=== PATIENT | female | born 1940 | race Caucasian/White ===

== ENCOUNTER 2025-02-02 05:25 | Observation (INO) | payer MEDICARE, BC ==
--- NOTE | 2025-01-26 10:44 | ELECTROCARDIOGRAPH REPORT ---
[facility] Test Date: 2025-01-26 Test Time: 10:38:52 Pat Name: CARMELA MOORE Department: [facility] Patient ID: [id number] Room: Gender: F Slip Cover Sewer: JENA : 1940 Requested By: ENRIQUE ALFRED Order Number: [id number] Reading MD: Dr. JACKELINE Chew Measurements Intervals [place] Rate: 74 P: 65 SD: 168 QRS: 20 QRSD: 92 T: 31 QT: 378 QTc: 420 Interpretive Statements Sinus rhythm Borderline low voltage, extremity leads Electronically Signed On 01-26-2025 17:26:[address] JACKELINE Chew Please click the below link to view image of tracing.
[2025-01-26 11:07] LABS: MEAN PLATELET VOLUME 8.2 FL (7.4-10.4); PRE OP HEMATOCRIT 40.0 % (35.0-45.0); PRE OP HEMOGLOBIN 13.5 g/dL (12.0-16.0); PRE OP PLATELET COUNT 211 X10'3 (140-440); PRE OP WHITE BLOOD COUNT 4.5 10'3 (4.8-10.8); RED CELL DISTRIBUTION WIDTH 13.5 % (11.5-14.5)
[2025-01-26 11:30] LABS: CREATININE 1.08 MG/DL (0.40-0.90); PRE OP ALT 15 U/L (30-65); PRE OP ANION GAP 7 (8-16); PRE OP AST 17 U/L (10-37); PRE OP BILIRUB, TOTAL 0.5 MG/DL (0.0-1.0); PRE OP GLUCOSE 73 MG/DL (70-104); PRE OP POTASSIUM 3.8 MMOL/L (3.4-5.1); PRE OP SODIUM 140 MMOL/L (135-145); TOTAL CARBON DIOXIDE 30.2 MMOL/L (24-32); eGFR 48 ML/MIN
[2025-02-02] VITALS (31 sets, daily range): BP systolic 125–148; BP diastolic 78–91; PULSE 78–99; RESP 11–34; TEMP 97–98.6; O2SAT 88–99
[~2025-02-02] VITALS: Ht 167.6 cm; Wt 68.9 kg
[~2025-02-02 05:25] MED LIST: ACET-2971 PO; AMIT10TA13 PO; ATOR10TA87 PO; CALC600T14 PO; CELE-193 PO; CHOL100046 PO; CYAN250010 PO; FLUC150T46 PO; FOLI0.4T3 PO; MAGN100T PO; OMEG-166 PO; SUMA25TA35 PO
[2025-02-02] MEDS: ceFAZolin 2gm/dext,iso 50mL 50 ML IV ONE (06:12)
[2025-02-02] MEDS: ringers solution, lacted 1,000 ML IV SCH ×2 (06:12→07:15)
[2025-02-02] MEDS ORDERED: BUPIVAcaine/PF 2.5mg/ml (0.25%) 10ml vial ONE (06:40)
[2025-02-02] MEDS ORDERED: LIDOcaine 1% (10mg/ml)w/preservative inj. 20ml MDV ONE (06:41)
[2025-02-02] MEDS ORDERED: LIDOcaine 1% 30ml preserv. free vial ONE (07:01)
[2025-02-02] MEDS ORDERED: fentaNYL /PF 50mcg/ml 5ml ampule ONE (07:08)
[2025-02-02] MEDS ORDERED: midazolam 1 mg/ML 2ml injection ONE (07:08)
[2025-02-02] MEDS ORDERED: dexamethasone sod phosphate 4mg/ml inj. ONE (07:11)
[2025-02-02] MEDS ORDERED: rocuronium 10mg/ml inj IV ONE ×3 (07:11→09:15)
[2025-02-02] MEDS ORDERED: propofol inj 20 ML IV ONE (07:11)
[2025-02-02] MEDS ORDERED: acetaminophen 1,000mg/100ml IV 100 ML IV ONE (07:11)
[2025-02-02] MEDS ORDERED: LIDOcaine 2% (20mg/ml) 5ml vial ONE (07:11)
[2025-02-02] MEDS ORDERED: labetalol 20mg/4ml (5mg/ml) syringe IV PRN (07:15)
[2025-02-02] MEDS ORDERED: morphine 4 MG/ML inj SYRINge IV PRN (07:15)
[2025-02-02] MEDS ORDERED: hydrALAZINE 20mg/ml inj. IV PRN (07:15)
[2025-02-02] MEDS ORDERED: ondansetron/PF 4mg/2ml inj ONE (08:07)
[2025-02-02] MEDS ORDERED: ePHEDrine 50MG/ML INJ. ONE (08:35)
[2025-02-02] MEDS ORDERED: albumin (Human) 5% 250ml 250 ML IV ONE (08:39)
--- NOTE | 2025-02-02 10:18 | OPERATIVE REPORT ---
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 Patient was placed supine and general anesthesia was induced. Preoperative antibiotics were given. Medrano catheter was placed. The abdomen was prepped and draped in the standard sterile fashion. At [facility], Veress needle technique was used through a stab incision to access and insufflate the abdomen. This was accomplished without incident. An optical, 12 mm trocar was used to gain access to the abdomen in the left upper quadrant under laparoscopic visualization. Additional 8.5 mm robotic trochars were placed under laparoscopic visualization in the left lateral upper abdomen, left epigastrium and right upper quadrant. Patient was placed in steep, reverse Trendelenburg position. The da Trang robotic arm was docked to the patient and instruments guided into the abdomen under laparoscopic visualization. The left lobe of the liver was lifted and the hiatus inspected. Fairly large hiatal defect was noted. About 50% of the stomach was herniated through the hiatus. An 18 inch, 0, V-Loc suture was used to sling the left lobe of the liver up to the anterior abdominal wall. With the stomach retracted towards the patient's left upper quadrant, dissection was initiated along the pars flaccida and the lesser sac was entered. The lesser omentum was divided up to the right justin. There was a replaced left hepatic artery. This was protected and preserved throughout the case. Dissection was carried in to the mediastinum. The mediastinal space was entered. Dissection was then carried posteriorly along the right justin, taking care to leave peritoneum overlying the muscles. Once the posterior decussation was encountered, attention was then turned to the short gastric vessels. Stomach was retracted toward the patient's right and the short gastric vessels were placed on tension. The short gastric vessels were divided along the upper portion of the greater curvature, up to the phrenoesophageal ligament which was also then divided. The peritoneal reflection of the left justin was opened and dissection carried up until the apex of the crura was reached. Dissection was carried up into the mediastinum, mobilizing the esophagus from the retrocardiac space and taking care not to injure the bilateral pleura. The entire hernia sac which was really quite large in size, was mobilized out of the mediastinum and reduced into the abdomen. Excess sac was dissected at the level of the gastroesophageal fat pad and set aside. The retroesophageal space was developed. The GE junction was retracted anteriorly and the mediastinal dissection was carried out posterior to the esophagus. Dissection continued until at least 3 cm of intra-abdominal esophagus was obtained without any retraction on the stomach. With the stomach retracted anteriorly, adequate space and visualization was obtained to allow for the crural repair. Strips of bioabsorbable, Phasix mesh were used to reinforce the crural repair. A strip of mesh was placed over each crura and used for reapproximation without tension. Attention was then turned to the gastropexy. Fundus was anchored to the upper left portion of the hiatus with full-thickness crural sutures. The suture was then run along the greater curvature creating a gastropexy to the anterior abdominal wall. Care was taken to stay medial to the phrenic nerve and vascular bundle. About a fourth of the gastric fundus was anchored to the anterior abdominal wall. Attention was then turned to the modified Hill procedure/augmentation stitch. The angle of His was then recreated with a running, 2/0, absorbable, V-Loc suture. This was run between the fundus and the lateral border of the intra-abdominal esophagus. This suture was run up to the level of the left justin. Gastropexy was then completed by running the midportion of the gastric fundus towards the initial gastropexy suture and anchoring the 2 together. [place] and sutures were retrieved. The da Trang robotic arm was undocked from the patient. The 12 mm port was removed and the fascial defect closed pe rcutaneously with 0 Vicryl suture. Remaining ports were removed and the abdomen was allowed to deflate. Skin was closed at all sites with 4-0 Monocryl sutures and dressed with Dermabond. Patient was extubated and transferred to the postanesthesia care unit in stable condition. Counts repoted as correct: Yes ANIL ALFRED MD Feb 02, 2025 10:18
[2025-02-02] MEDS: ondansetron/PF 4mg/2ml inj IV PRN ×2 (10:25→14:45)
[2025-02-02] MEDS: fentaNYL/PF 50MCG/1 ML 2ML syringe IV PRN ×2 (10:49→10:58)
[2025-02-02] MEDS: normal saline 1000ml 1,000 ML IV SCH (11:25)
--- NOTE | 2025-02-02 11:30 | RADIOLOGY REPORT ---
EXAM: DI CHEST,SINGLE VIEW Indication: POSTOP Technique: Single frontal view of the chest was obtained Comparison: None FINDINGS: Lines and Tubes: None Lungs: Diffuse interstitial opacities. Possible trace left pneumothorax. Cardiomediastinal contours: Unremarkable. Extensive subcutaneous emphysema in the neck and chest wal l. Bones: No acute osseous abnormality. IMPRESSION: Diffuse interstitial opacities. Possible trace left pneumothorax. Extensive subcutaneous emphysema i n the neck and chest wall.
[2025-02-02] MEDS: HYDROmorph/NS 0.2 mg/ml PCA 100 ML IV SCH (12:55)
[2025-02-02] MEDS: potassium CL 20mEq in D5-1/2NS 1,000 ML IV SCH (14:46)
[2025-02-02] MEDS ORDERED: oxyCODONE/APAP 5-325mg tablet PO PRN (18:30)
[2025-02-02] MEDS: PCA WASTE DOCUMENTATION 1 MG ML MC SCH (19:21)
[2025-02-02] MEDS: HYDROcodone/acetaminophen 5mg/325mg tablet PO PRN (19:26)
[2025-02-02 20:34] LABS: MEAN PLATELET VOLUME 8.3 FL (7.4-10.4); RED CELL DISTRIBUTION WIDTH 13.4 % (11.5-14.5)
[2025-02-02 21:04] LABS: CREATININE 0.94 MG/DL (0.40-0.90); TOTAL CARBON DIOXIDE 25.5 MMOL/L (24-32); eCRCL 42 ML/MIN; eGFR 57 ML/MIN
[2025-02-03 02:00] VITALS: BP 152/77; PULSE 76; RESP 18; TEMP 97.9; O2SAT 93
[2025-02-03 06:00] VITALS: BP 119/71; PULSE 72; RESP 16; TEMP 98.1; O2SAT 93
[2025-02-03] MEDS: CALCIUM CARBONATE 600 MG PO SCH (08:00)
[2025-02-03 10:00] VITALS: BP 131/82; PULSE 77; RESP 16; TEMP 98.1; O2SAT 97
[2025-02-03] MEDS ORDERED: HYDR-3964 PO (10:20)
[2025-02-03] MEDS ORDERED: ONDA-243 PO (10:20)
[2025-02-03] MEDS ORDERED: ondansetron 4mg rapidly disintigrating tab PO PRN (10:20)
--- NOTE | 2025-02-03 10:22 | DISCHARGE SUMMARY ---
Discharge Summary Providers to CC CC: ANIL ALFRED MD ~ Discharge Summary Admission Diagnosis: Paraesophageal hernia Hospital Course DATE OF ADMISSION: February 02, 2025 DATE OF DISCHARGE: February 03, 2025 Discharge Diagnosis\Comment: Type 3 paraesophageal hernia Operations\Procedures: Robotic assisted, laparoscopic paraesophageal hernia repair with mesh Consultants: Anil Alfred MD FACS Complications: None Condition on DC: Stable New Medications: ONDANSETRON ODT 4mg tablet (Ondansetron Odt) 4 Mg Tab.rapdis 1 TAB PO Q6H PRN PRN for nausea/vomiting for 7 Days, #30 TAB 0 Refills Hydrocodone Bit/Acetaminophen (Hydrocodon-Acetaminophen 5-325) 5 Mg-325 Mg Tablet 1 TAB PO Q4H PRN for moderate or severe pain 4-10 for 5 Days, #30 TAB Continued Medications: Acetaminophen (Tylenol Arthritis) 650 Mg Tablet.er 1 TAB PO Q12H, TAB 0 Refills Amitriptyline HCl (Amitriptyline HCl) 10 Mg Tablet 1 TAB PO HS, TAB 0 Refills Atorvastatin Calcium* (Lipitor*) 10 Mg Tablet 10 MG PO DAILY Calcium Carbonate (Calcium) 600 Mg Tablet 1200 MG PO DAILY Celecoxib* (Celebrex*) 100 Mg Capsule 2 CAP PO HS for arthritis, CAP Cholecalciferol (Vitamin D3) (Vitamin D3) 25 Mcg (1000 Unit) Capsule 5000 UNITS PO DAILY Cyanocobalamin (Vitamin B-12) (Vitamin B12) 2,500 Mcg Tablet 2 TAB PO EVERY OTHER DAY, TAB 0 Refills Fluconazole (Fluconazole) 150 Mg Tablet 1 TAB PO PRN PRN for YEAST, TAB Folic Acid (FOLIC ACID tablet) 0.4 Mg Tablet 800 MCG PO DAILY, TAB 0 Refills Magnesium Glycinate (Mag Glycinate) 100 Mg Tablet 240 MG PO HS, TAB 0 Refills [place]-3/Dha/Epa/Fish Oil (Fish Oil 1,000 Mg Ec Softgel) 300 Mg-1,000 Mg Capsule.dr 1 CAP PO Q12H Sumatriptan Succinate* (Imitrex Tab*) 25 Mg Tablet 100 MG PO DAILY PRN for MIGRAINE MAY REPEAT ONCE IN 2 HOURS Discharge Summary: Patient was admitted for observation and pain control overnight. She had some nausea from the pain medication, however, on the morning following surgery this was controlled with on the tongue Zofran and she had no dysphagia. She was deemed ready for discharge home. *Problems/Diagnosis: (1) Paraesophageal hernia Total Time Spent on D/C: Up to 30 Minutes ANIL ALFRED MD Feb 03, 2025 10:22
== END 2025-02-03 11:50 | disposition home or self-care (01) ==
LOC: PAS 05:25 → OBSVTOIN 11:35 → INTOOBSV 11:35 → PAS IN 11:35 → SUR 3N 13:12
PROVIDERS: ADMIT Surgery; ATTEND Surgery
DX: K44.9 Diaphragmatic hernia without obstruction or gangrene (principal); M19.90 Unspecified osteoarthritis, unspecified site; R11.0 Nausea; Z79.899 Other long term (current) drug therapy; Z98.890 Other specified postprocedural states
CPT/HCPCS: 43282; 80053; 82948; 93005; 96374; 96375; A4615; A4618; C1781; G0378; J1171; J3480; J3490; J7120; 36415; 71045; 85025; 87081; 96376; J0131; J0780; J1100; J2003; J2250; J2270; J2405; J2704; J3010; P9045